=== PATIENT | male | born 1965 | race American Indian/Alaskan Native ===

== ENCOUNTER 2022-01-31 05:58 | Inpatient (IN) | payer SELFPAY ==
[2022-01-31] MEDS ORDERED: PANTOPRAZOLE 40 MG TAB PO ONE (07:03)
--- NOTE | 2022-01-31 07:04 | Emergency Department Report ---
ED General Adult HPI - General Chief complaint: Abdominal Pain Stated complaint: It is my pancreas Time Seen by Provider: 01/31/22 06:10 Source: patient, RN notes reviewed Mode of arrival: Ambulatory Limitations: No Limitations - History of Present Illness Initial comments: This patient is a 56-year-old gentleman with a history of alcohol induced pancre atitis, who presents to the ER today with a complaint of diffuse abdominal pain, nausea and vomiting, consistent with prior episodes of pancreatitis. Last alcoholic beverage was yesterday. He is not homicidal suicidal. -: Gradual Location: abdomen Severity scale (0 -10): 10 Consistency: constant Improves with: medication, rest Worsens with: movement - Related Data Allergies Allergy/AdvReac Type Severity Reaction Status Date / Time No Known Allergies Allergy Verified 01/31/22 06:16 ED Review of Systems ROS: Stated complaint: ABD PAIN,VOMITING Other details as noted in HPI Constitutional: denies: fever Eyes: denies: eye discharge ENT: denies: epistaxis Respiratory: denies: cough Cardiovascular: denies: chest pain Gastrointestinal: abdominal pain, nausea, vomiting. denies: hematochezia Genitourinary: denies: dysuria Neurological: weakness Psychiatric: denies: homicidal thoughts, suicidal thoughts ED Physical Exam - General Limitations: No Limitations General appearance: alert, anxious, in distress - Head Head exam: Present: atraumatic, normocephalic - Eye Eye exam: Present: normal appearance, EOMI. Absent: conjunctival injection, nystagmus - ENT ENT exam: Present: normal exam, normal orophraynx, mucous membranes moist, normal external ear exam - Neck Neck exam: Present: normal inspection, full ROM. Absent: tenderness, meningismus - Respiratory Respiratory exam: Present: decreased breath sounds. Absent: respiratory distre ss, wheezes, rales, rhonchi, stridor - Cardiovascular Cardiovascular Exam: Present: regular rate, normal rhythm, normal heart sounds. Absent: bradycardia, tachycardia, irregular rhythm, systolic murmur, diastolic murmur, rubs, gallop - GI/Abdominal GI/Abdominal exam: Present: soft, tenderness. Absent: distended, guarding, rebound, rigid, pulsatile mass - Rectal Rectal exam: Present: deferred - Extremities Exam Extremities exam: Present: normal inspection, full ROM, other (2+ pulses noted in the bilateral upper and lower extremities. There is no palpable cord. negative Homans sign. Muscular compartments are soft. The pelvis is stable.). Absent: pedal edema, calf tenderness - Back Exam Back exam: Present: normal inspection. Absent: tenderness, CVA tenderness (R), CVA tenderness (L), paraspinal tenderness, vertebral tenderness - Neurological Exam Neurological exam: Present: alert, other (No facial droop. Tongue midline. Extraocular movements intact bilaterally. Facial sensation intact to light touch in V1, V2, V3 distribution bilaterally. 5 and a 5 strength in 4 extremities. Sensation intact to light touch in 4 extremities.) - Psychiatric Psychiatric exam: Present: anxious - Skin Skin exam: Present: warm, dry, intact, normal color. Absent: rash ED Course Vital Signs 01/31/22 01/31/22 01/31/22 06:07 09:05 09:06 Temperature 98.9 F Pulse Rate 66 60 Respiratory 30 H 20 Rate Blood Pressure 147/89 150/90 [Left] O2 Sat by Pulse 99 100 100 Oximetry - Reevaluation(s) Reevaluation #1: 01/31/22 09:28 Differential diagnosis, include but not limited to: Pancreatitis, obstruction, colitis, gastroenteritis Assessment and plan: 56-year-old gentleman with probable alcohol induced pancreatitis. Lipase is elevated at 1300. He is found to have evidence of dehydration and elevated CK. CT scan of the abdomen pelvis ordered and pending. Admit to the medical service for dehydration, and probable alcohol induced pancreatitis. Patient is agre eable to this plan of care. Discussed with hospital physician once CT scan has been formally interpreted by radiology 01/31/22 09:31 The patient is agreeable to admission and hospitalization 01/31/22 09:37 CT scan abdomen pelvis reviewed and appreciated. Acute uncomplicated interstitial pancreatitis. Hospital physician, Dr. Shiv Cowart to admit to [facility] ED Medical Decision Making - Lab Data Result diagrams: 01/31/22 07:04 01/31/22 07:04 Vital Signs 01/31/22 01/31/22 01/31/22 06:07 09:05 09:06 Temperature 98.9 F Pulse Rate 66 60 Respiratory 30 H 20 Rate Blood Pressure 147/89 150/90 [Left] O2 Sat by Pulse 99 100 100 Oximetry Lab Results 01/31/22 01/31/22 01/31/22 Range/Units 07:04 07:04 07:04 WBC 7.7 (4.5-11.0) K/mm3 RBC 4.32 (3.65-5.03) M/mm3 Hgb 13.0 (11.8-15.2) gm/dl Hct 39.7 (35.5-45.6) % MCV 92 (84-94) fl MCH 30 (28-32) pg MCHC 33 (32-34) % RDW 13.8 (13.2-15.2) % Plt Count 247 (140-440) K/mm3 Lymph % (Auto) 12.5 L (13.4-35.0) % Geary % (Auto) 6.4 (0.0-7.3) % Eos % (Auto) 1.0 (0.0-4.3) % Baso % (Auto) 0.9 (0.0-1.8) % Lymph # (Auto) 1.0 L (1.2-5.4) K/mm3 Geary # (Auto) 0.5 (0.0-0.8) K/mm3 Eos # (Auto) 0.1 (0.0-0.4) K/mm3 Baso # (Auto) 0.1 (0.0-0.1) K/mm3 Seg Neutrophils % 79.2 H (40.0-70.0) % Seg Neutrophils # 6.1 (1.8-7.7) K/mm3 PT (12.2-14.9) Sec. INR (0.87-1.13) Sodium 136 L (137-145) mmol/L Potassium 4.2 (3.6-5.0) mmol/L Chloride 100.9 (98-107) mmol/L Carbon Dioxide 24 (22-30) mmol/L Anion Gap 15 mmol/L BUN 16 (9-20) mg/dL Creatinine 0.8 (0.8-1.3) mg/dL Estimated GFR > 60 ml/min BUN/Creatinine Ratio 20 % Glucose 148 H (75-100) mg/dL Calcium 9.4 (8.4-10.2) mg/dL Magnesium (1.7-2.3) mg/dL Total Bilirubin 0.60 (0.1-1.2) mg/dL AST 52 H (5-40) units/L ALT 32 (7-56) units/L Alkaline Phosphatase 46 (35-129) units/L Total Creatine Kinase (55-170) units/L Total Protein 7.0 (6.3-8.2) g/dL Albumin 4.8 (3.9-5) g/dL Albumin/Globulin Ratio 2.2 % Lipase 1328 H (13-60) units/L Plasma/Serum Alcohol (0-0.07) % 01/31/22 01/31/22 01/31/22 Range/Units 07:30 08:16 08:16 WBC (4.5-11.0) K/mm3 RBC (3.65-5.03) M/mm3 Hgb (11.8-15.2) gm/dl Hct (35.5-45.6) % MCV (84-94) fl MCH (28-32) pg MCHC (32-34) % RDW (13.2-15.2) % Plt Count (140-440) K/mm3 Lymph % (Auto) (13.4-35.0) % Geary % (Auto) (0.0-7.3) % Eos % (Auto) (0.0-4.3) % Baso % (Auto) (0.0-1.8) % Lymph # (Auto) (1.2-5.4) K/mm3 Geary # (Auto) (0.0-0.8) K/mm3 Eos # (Auto) (0.0-0.4) K/mm3 Baso # (Auto) (0.0-0.1) K/mm3 Seg Neutrophils % (40.0-70.0) % Seg Neutrophils # (1.8-7.7) K/mm3 PT 12.8 (12.2-14.9) Sec. INR 0.87 (0.87-1.13) Sodium (137-145) mmol/L Potassium (3.6-5.0) mmol/L Chloride (98-107) mmol/L Carbon Dioxide (22-30) mmol/L Anion Gap mmol/L BUN (9-20) mg/dL Creatinine (0.8-1.3) mg/dL Estimated GFR ml/min BUN/Creatinine Ratio % Glucose (75-100) mg/dL Calcium (8.4-10.2) mg/dL Magnesium 2.20 (1.7-2.3) mg/dL Total Bilirubin (0.1-1.2) mg/dL AST (5-40) units/L ALT (7-56) units/L Alkaline Phosphatase (35-129) units/L Total Creatine Kinase 1260 H (55-170) units/L Total Protein (6.3-8.2) g/dL Albumin (3.9-5) g/dL Albumin/Globulin Ratio % Lipase (13-60) units/L Plasma/Serum Alcohol < 0.01 (0-0.07) % - EKG Data -: EKG Interpreted by Nm EKG shows normal: sinus rhythm Rate: normal - EKG Data When compared to previous EKG there are: previous EKG unavailable 01/31/22 09:26 The EKG is interpreted at 08: 51 Sinus rhythm, bradycardia, 56 bpm. Normal axis, normal P wave axis, left ventricular hypertrophy, and motion artifact. This is an abnormal EKG. This is not a STEMI - Radiology Data Radiology results: pending, report reviewed, image reviewed CT ABDOMEN AND PELVIS WITH CONTRAST INDICATION / CLINICAL INFORMATION: acute abd pain pancreatitis omni 300 100ml. TECHNIQUE: Axial CT images were obtained through the abdomen and pelvis after 100 cc of Omnipaque 300 IV contrast. Sagittal and coronal reformatted images. All CT scans at this location are performed using CT dose reduction for ALARA by means of automated exposure control. COMPARISON: None available. FINDINGS: LOWER CHEST: Mild cardiomegaly is suspected. The visualized lung bases are clear. LIVER: There is mild hepatomegaly with steatosis. No focal liver lesion. GALLBLADDER: No significant abnormality. BILE DUCTS: No significant abnormality. PANCREAS: Mild inflammatory fat stranding and fluid surrounds the pancreas. No discrete mass, pseudocyst or perfusion defect. SPLEEN: No significant abnormality. ADRENALS: No significant abnormality. RIGHT KIDNEY and URETER: No significant abnormality. LEFT KIDNEY and URETER: No significant abnormality. STOMACH and SMALL BOWEL: No significant abnormality. COLON: No significant abnormality. APPENDIX: No significant abnormality. PERITONEUM: No free air. No fluid collection. LYMPH NODES: No significant adenopathy. AORTA and ARTERIES: No significant abnormality. IVC and VEINS: No significant abnormality. URINARY BLADDER: No significant abnormality. REPRODUCTIVE ORGANS: No significant abnormality. ADDITIONAL FINDINGS: None. SKELETAL SYSTEM: No significant abnormality. IMPRESSION: Findings consistent with acute interstitial pancreatitis. No obvious biliary stones on CT. Hepatomegaly with steatosis. Mild cardiomegaly. Signer Name: Brian White Jr, MD Signed: 01/31/2022 8:30 AM Workstation Name: [id number] Critical care attestation.: If time is entered above; I have spent that time in minutes in the direct care of this critically ill patient, excluding procedure time. ED Disposition Clinical Impression: Acute pancreatitis, Elevated CK, Alcohol abuse Disposition: ADMITTED INPATIENT Is pt being admited?: Yes Does the pt Need Aspirin: No Condition: Good
[2022-01-31] MEDS ORDERED: SODIUM CHLORIDE 0.9% 1000 ML 1,000 ML IV ONE (07:53)
[2022-01-31] MEDS ORDERED: PANTOPRAZOLE 40 MG INJ IV ONE (07:53)
[2022-01-31] MEDS ORDERED: ONDANSETRON 4 MG/2 ML INJ IV ONE (07:53)
[2022-01-31] MEDS ORDERED: HYDROmorphone 1 MG/1 ML INJ IV ONE ×2 (07:53→09:31)
[2022-01-31 08:16] LABS: Basophils # (Auto) 0.1 K/mm3 (0.0-0.1); Basophils % (Auto) 0.9 % (0.0-1.8); Eosinophils # (Auto) 0.1 K/mm3 (0.0-0.4); Hematocrit 39.7 % (35.5-45.6); Lymphocytes % (Auto) 12.5 % (13.4-35.0); Mean Corpuscular HGB Conc 33 % (32-34); Mean Corpuscular Volume 92 fl (84-94); Monocytes # (Auto) 0.5 K/mm3 (0.0-0.8); Monocytes % (Auto) 6.4 % (0.0-7.3); Platelet Count 247 K/mm3 (140-440); Red Blood Count 4.32 M/mm3 (3.65-5.03); Red Cell Distribution Width 13.8 % (13.2-15.2)
[2022-01-31 08:18] LABS: Alanine Aminotransferase 32 units/L (7-56); Albumin 4.8 g/dL (3.9-5); BUN/Creatinine Ratio 20; Blood Urea Nitrogen 16 mg/dL (9-20); Calcium 9.4 mg/dL (8.4-10.2); Hemolysis Index 18
[2022-01-31 08:42] LABS: INR 0.87 (0.87-1.13)
[2022-01-31] MEDS ORDERED: LORazepam 2 MG/ML VIAL IV PRN ×3 (09:30)
--- NOTE | 2022-01-31 09:35 | Cat Scan Report ---
CT ABDOMEN AND PELVIS WITH CONTRAST INDICATION / CLINICAL INFORMATION: acute abd pain pancreatitis omni 300 100ml. TECHNIQUE: Axial CT images were obtained through the abdomen and pelvis after 100 cc of Omnipaque 300 IV contras t. Sagittal and coronal reformatted images. All CT scans at this location are performed using CT dose reduction for ALARA by means of automated exposure control. COMPARISON: None available. FINDINGS: LOWER CHEST: Mild cardiomegaly is suspected. The visualized lung bases are clear. LIVER: There is mild hepatomegaly with steatosis. No focal liver lesion. GALLBLADDER: No significant abnormality. BILE DUCTS: No significant abnormality. PANCREAS: Mild inflammatory fat stranding and fluid surrounds the pancreas. No discrete mass, pseudoc yst or perfusion defect. SPLEEN: No significant abnormality. ADRENALS: No significant abnormality. RIGHT KIDNEY and URETER: No significant abnormality. LEFT KIDNEY and URETER: No significant abnormality. STOMACH and SMALL BOWEL: No significant abnormality. COLON: No significant abnormality. APPENDIX: No significant abnormality. PERITONEUM: No free air. No fluid collection. LYMPH NODES: No significant adenopathy. AORTA and ARTERIES: No significant abnormality. IVC and VEINS: No significant abnormality. URINARY BLADDER: No significant abnormality. REPRODUCTIVE ORGANS: No significant abnormality. ADDITIONAL FINDINGS: None. SKELETAL SYSTEM: No significant abnormality. IMPRESSION: Findings consistent with acute interstitial pancreatitis. No obvious biliary stones on CT. Hepatomegaly with steatosis. Mild cardiomegaly. Signer Name: Brian White Jr, MD Signed: 01/31/2022 9:30 AM Workstation Name: [id number]
[2022-01-31] MEDS ORDERED: THIAMINE 100 MG, FOLIC ACID 1 MG, MULTIPLE VITAMIN INJ, ADULT 10 ML in SODIUM CHLORIDE ... IV ONE (10:00)
--- NOTE | 2022-01-31 11:51 | History and Physical Report ---
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 Pain is about 10 on a scale of 1-10. Pain is all over the abdomen. Radiation to the back present. Last alcohol drink was yesterday. No fever or chills. Alcohol is exacerbating factor. No relieving factors. Review of Systems ROS: Stated complaint: ABD PAIN,VOMITING Other details as noted in HPI Constitutional: denies: fever Eyes: denies: eye discharge ENT: denies: epistaxis Respiratory: denies: cough Cardiovascular: denies: chest pain Gastrointestinal: abdominal pain, nausea, vomiting. denies: hematochezia Genitourinary: denies: dysuria Neurological: weakness Psychiatric: denies: homicidal thoughts, suicidal thoughts Past History Past Medical History: No medical history Past Surgical History: No surgical history Social history: lives with family, alcohol abuse, full code Family history: hypertension Medications and Allergies Allergies Allergy/AdvReac Type Severity Reaction Status Date / Time No Known Allergies Allergy Verified 01/31/22 06:16 Home Medications Medication Instructions Recorded Confirmed Last Taken Type No Known Home Medications [No 02/01/22 02/01/22 Unknown History Reported Home Medications] Active Meds: Active Medications Thiamine HCl 100 mg/ Folic Acid 1 mg/ Multivitamins/Minerals 10 ml/ Sodium Chloride 1,011.2 mls @ 250 mls/hr IV ONCE ONE Stop: 01/31/22 14:02 Last Admin: 01/31/22 09:51 Dose: 250 mls/hr Lorazepam (Lorazepam 2 Mg/Ml Vial) 2 mg IV Q1HR PRN PRN Reason: CIWA-Ar 8-15 Lorazepam (Lorazepam 2 Mg/Ml Vial) 4 mg IV Q1HR PRN PRN Reason: CIWA-Ar 16-25 Lorazepam (Lorazepam 2 Mg/Ml Vial) 4 mg IV Q15MIN PRN PRN Reason: CIWA-Ar >25 Exam - Constitutional Vitals: Temp Pulse Resp BP Pulse Ox 98.9 F 64 15 146/90 98 01/31/22 06:07 01/31/22 11:00 01/31/22 11:00 01/31/22 11:00 01/31/22 11:00 General appearance: Present: mild distress, well-nourished - EENT Eyes: Present: PERRL ENT: hearing intact, clear oral mucosa - Neck Neck: Present: supple, normal ROM - Respiratory Respiratory effort: normal Respiratory: bilateral: CTA - Cardiovascular Heart rate: 78 Rhythm: regular Heart Sounds: Present: S1 & S2. Absent: rub, click - Extremities Extremities: pulses symmetrical, No edema Peripheral Pulses: within normal limits - Abdominal General gastrointestinal: Present: soft, non-tender, non-distended, normal bowel sounds Localized gastrointestinal: tender: diffuse, guarding: diffuse Male genitourinary: Present: normal - Integumentary Integumentary: Present: clear, warm, dry - Musculoskeletal Musculoskeletal: gait normal, strength equal bilaterally - Psychiatric Psychiatric: appropriate mood/affect, intact judgment & insight - Neurologic Neurologic: CNII-XII intact, moves all extremities - Allied Health Allied health notes reviewed: nursing, case management Results - Labs CBC & Chem 7: 02/03/22 04:28 02/03/22 04:28 Labs: Laboratory Last Values WBC 7.7 K/mm3 (4.5-11.0) 01/31/22 07:04 RBC 4.32 M/mm3 (3.65-5.03) 01/31/22 07:04 Hgb 13.0 gm/dl (11.8-15.2) 01/31/22 07:04 Hct 39.7 % (35.5-45.6) 01/31/22 07:04 MCV 92 fl (84-94) 01/31/22 07:04 MCH 30 pg (28-32) 01/31/22 07:04 MCHC 33 % (32-34) 01/31/22 07:04 RDW 13.8 % (13.2-15.2) 01/31/22 07:04 Plt Count 247 K/mm3 (140-440) 01/31/22 07:04 Lymph % (Auto) 12.5 % (13.4-35.0) L 01/31/22 07:04 [place]monson % (Auto) 6.4 % (0.0-7.3) 01/31/22 07:04 Eos % (Auto) 1.0 % (0.0-4.3) 01/31/22 07:04 Baso % (Auto) 0.9 % (0.0-1.8) 01/31/22 07:04 Lymph # (Auto) 1.0 K/mm3 (1.2-5.4) L 01/31/22 07:04 [place]on # (Auto) 0.5 K/mm3 (0.0-0.8) 01/31/22 07:04 Eos # (Auto) 0.1 K/mm3 (0.0-0.4) 01/31/22 07:04 Baso # (Auto) 0.1 K/mm3 (0.0-0.1) 01/31/22 07:04 Seg Neutrophils % 79.2 % (40.0-70.0) H 01/31/22 07:04 Seg Neutrophils # 6.1 K/mm3 (1.8-7.7) 01/31/22 07:04 PT 12.8 Sec. (12.2-14.9) 01/31/22 08:16 INR 0.87 (0.87-1.13) 01/31/22 08:16 Sodium 136 mmol/L (137-145) L 01/31/22 07:04 Potassium 4.2 mmol/L (3.6-5.0) 01/31/22 07:04 Chloride 100.9 mmol/L (98-107) 01/31/22 07:04 Carbon Dioxide 24 mmol/L (22-30) 01/31/22 07:04 Anion Gap 15 mmol/L 01/31/22 07:04 BUN 16 mg/dL (9-20) 01/31/22 07:04 Creatinine 0.8 mg/dL (0.8-1.3) 01/31/22 07:04 Estimated GFR > 60 ml/min 01/31/22 07:04 BUN/Creatinine Ratio 20 % 01/31/22 07:04 Glucose 148 mg/dL (75-100) H 01/31/22 07:04 Calcium 9.4 mg/dL (8.4-10.2) 01/31/22 07:04 Magnesium 2.20 mg/dL (1.7-2.3) 01/31/22 07:30 Total Bilirubin 0.60 mg/dL (0.1-1.2) 01/31/22 07:04 AST 52 units/L (5-40) H 01/31/22 07:04 ALT 32 units/L (7-56) 01/31/22 07:04 Alkaline Phosphatase 46 units/L (35-129) 01/31/22 07:04 Total Creatine Kinase 1260 units/L (55-170) H 01/31/22 07:30 Total Protein 7.0 g/dL (6.3-8.2) 01/31/22 07:04 Albumin 4.8 g/dL (3.9-5) 01/31/22 07:04 Albumin/Globulin Ratio 2.2 % 01/31/22 07:04 Lipase 1328 units/L (13-60) H 01/31/22 07:04 Plasma/Serum Alcohol < 0.01 % (0-0.07) 01/31/22 08:16 Short CBC 01/31/22 Range/Units 07:04 WBC 7.7 (4.5-11.0) K/mm3 Hgb 13.0 (11.8-15.2) gm/dl Hct 39.7 (35.5-45.6) % Plt Count 247 (140-440) K/mm3 [facility] 01/31/22 07:04 Sodium 136 L Potassium 4.2 Chloride 100.9 Carbon Dioxide 24 BUN 16 Creatinine 0.8 Glucose 148 H Calcium 9.4 Cardiac Enzymes 01/31/22 Range/Units 07:30 Total Creatine Kinase 1260 H (55-170) units/L Liver Function 01/31/22 Range/Units 07:04 Total Bilirubin 0.60 (0.1-1.2) mg/dL AST 52 H (5-40) units/L ALT 32 (7-56) units/L Alkaline Phosphatase 46 (35-129) units/L Albumin 4.8 (3.9-5) g/dL Short CBC 02/03/22 Range/Units 04:28 WBC 4.5 (4.5-11.0) K/mm3 Hgb 10.8 L (11.8-15.2) gm/dl Hct 33.5 L (35.5-45.6) % Plt Count 198 (140-440) K/mm3 [facility] 02/03/22 04:28 Sodium 142 Potassium 3.5 L Chloride 108.6 H Carbon Dioxide 23 BUN 4 L Creatinine 0.7 L Glucose 98 Calcium 8.4 Liver Function 02/03/22 Range/Units 04:28 Total Bilirubin 0.40 (0.1-1.2) mg/dL AST 22 (5-40) units/L ALT 16 (7-56) units/L Alkaline Phosphatase 35 (35-129) units/L Albumin 3.6 L (3.9-5) g/dL - Imaging and Cardiology CT scan - abdomen: report reviewed Imaging and Cardiology: CT abdomen and pelvis Findings consistent with acute interstitial pancreatitis. No obvious biliary stones on CT. Assessment and Plan Advance Directives: Yes (Full code) VTE prophylaxis?: Chemical Plan of care discussed with patient/family: Yes - Patient Problems (1) Acute pancreatitis Current Visit: Yes Status: Acute Qualifiers: Pancreatitis type: alcohol induced Plan to address problem: Lipase is 1328 Keep the patient n.p.o. IV fluids for now Pain management (2) Rhabdomyolysis Current Visit: Yes Status: Acute Qualifiers: Rhabdomyolysis type: non-traumatic Qualified Code(s): M62.82 - Rhabdomyolysis Plan to address problem: Mild IV fluids for now (3) Transaminitis Current Visit: Yes Status: Acute Plan to address problem: Mild AST is 52 ALT is 32 Alcohol induced (4) EtOH dependence Current Visit: Yes Status: Chronic Qualifiers: Substance use status: uncomplicated Qualified Code(s): F10.20 - Alcohol dependence, uncomplicated Plan to address problem: Initiated on CIWA protocol Patient counseled about alcohol intake and to avoid alcohol (5) DVT prophylaxis Current Visit: Yes Status: Acute Plan to address problem: On anticoagulation GI prophylaxis (6) Advance care planning Current Visit: Yes Status: Acute Plan to address problem: Disease education conducted, care plan discussed, diagnosis discussed, prognosis discussed. Patient is full code. Patient acknowledged understanding and agreement with care plan. +30 minutes.
[2022-01-31] MEDS ORDERED: METOCLOPRAMIDE 10 MG/2 ML INJ IV PRN (12:00)
[2022-01-31] MEDS ORDERED: ACETAMINOPHEN 325 MG TAB PO PRN (12:00)
[2022-01-31] MEDS ORDERED: oxyCODONE /ACETAMINOPHEN 5-325MG TAB PO PRN (12:00)
[2022-01-31] MEDS: HYDROmorphone 1 MG/1 ML INJ IV PRN ×3 (12:13→21:48)
[2022-01-31] MEDS: ONDANSETRON 4 MG/2 ML INJ IV PRN (12:13)
[2022-01-31] MEDS: HEPARIN 5,000 UNIT/1 ML VIAL SUB-Q SCH ×2 (12:13→21:52)
[2022-01-31] MEDS: D5W/0.9% NACL 1,000 ML IV SCH (15:27)
[2022-02-01] MEDS ORDERED: ZOLPIDEM 5 MG TAB PO ONE (00:35)
[2022-02-01] MEDS: D5W/0.9% NACL 1,000 ML IV SCH ×2 (00:48→22:15)
[2022-02-01 04:16] LABS: Basophils # (Auto) 0.1 K/mm3 (0.0-0.1); Basophils % (Auto) 1.2 % (0.0-1.8); Eosinophils # (Auto) 0.1 K/mm3 (0.0-0.4); Eosinophils % (Auto) 1.1 % (0.0-4.3); Hematocrit 38.7 % (35.5-45.6); Hemoglobin 12.7 gm/dl (11.8-15.2); Lymphocytes % (Auto) 13.8 % (13.4-35.0); Mean Corpuscular HGB Conc 33 % (32-34); Mean Corpuscular Volume 92 fl (84-94); Monocytes # (Auto) 0.6 K/mm3 (0.0-0.8); Monocytes % (Auto) 8.5 % (0.0-7.3); Platelet Count 209 K/mm3 (140-440); Red Blood Count 4.22 M/mm3 (3.65-5.03); Red Cell Distribution Width 13.8 % (13.2-15.2)
[2022-02-01] MEDS: HYDROmorphone 1 MG/1 ML INJ IV PRN ×5 (04:36→19:51)
[2022-02-01 04:39] LABS: Alanine Aminotransferase 23 units/L (7-56); Albumin 4.2 g/dL (3.9-5); Blood Urea Nitrogen 8 mg/dL (9-20); Calcium 8.9 mg/dL (8.4-10.2); Hemolysis Index 8
[2022-02-01 04:42] LABS: BUN/Creatinine Ratio 11
[2022-02-01] MEDS: ONDANSETRON 4 MG/2 ML INJ IV PRN (08:06)
[2022-02-01] MEDS: HEPARIN 5,000 UNIT/1 ML VIAL SUB-Q SCH ×2 (10:00→22:16)
[2022-02-01] MEDS: NICOTINE 14 MG/24 HR PATCH TD SCH (16:00)
[2022-02-01] MEDS: ZOLPIDEM 5 MG TAB PO PRN (22:16)
--- NOTE | 2022-02-02 06:54 | Progress Note ---
Assessment and Plan - Patient Problems (1) Acute pancreatitis Current Visit: Yes Status: Acute Qualifiers: Pancreatitis type: alcohol induced Plan to address problem: Lipase is 706. Improved from 1328 Amylase is 492 Keep the patient n.p.o. IV fluids for now Pain management (2) Rhabdomyolysis Current Visit: Yes Status: Acute Qualifiers: Rhabdomyolysis type: non-traumatic Qualified Code(s): M62.82 - Rhabdomyolysis Plan to address problem: Mild IV fluids for now (3) EtOH dependence Current Visit: Yes Status: Acute Qualifiers: Substance use status: uncomplicated Qualified Code(s): F10.20 - Alcohol dependence, uncomplicated Plan to address problem: Patient counseled about alcohol and avoidance of alcohol. Also educated about alcohol effects on liver and pancreas (4) Advance care planning Current Visit: Yes Status: Acute Plan to address problem: Disease education conducted, care plan discussed, diagnosis discussed, prognosis discussed. Patient is full code. Patient acknowledged understanding and agreement with care plan. +30 minutes. 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 Pain is about 10 on a scale of 1-10. Pain is all over the abdomen. Radiation to the back present. Last alcohol drink was yesterday. No fever or chills. Alcohol is exacerbating factor. No relieving factors. February 01, 2022 Patient is n.p.o. Abdominal pain slightly better Lipase is coming down to 706 from 1328 Amylase is 492 Objective - Constitutional Vitals: Vital Signs - 12hr 02/01/22 02/01/22 02/02/22 19:55 21:54 04:19 Temperature 97.8 F 98.3 F Pulse Rate 53 L 66 Respiratory 18 18 Rate Blood Pressure 137/68 147/84 O2 Sat by Pulse 99 98 98 Oximetry General appearance: Present: no acute distress, well-nourished - EENT Eyes: PERRL, EOM intact ENT: hearing intact, clear oral mucosa Ears: bilateral: normal - Neck Neck: supple, normal ROM - Respiratory Respiratory effort: normal Respiratory: bilateral: CTA - Breasts Breasts: normal - Cardiovascular Heart rate: 78 Rhythm: regular Heart Sounds: Present: S1 & S2. Absent: gallop, rub Extremities: pulses intact, No edema, normal color, Full ROM - Gastrointestinal General gastrointestinal: Present: soft, non-tender, non-distended, normal bowel sounds - Genitourinary Male genitourinary: normal - Integumentary Integumentary: clear, warm, dry - Musculoskeletal Musculoskeletal: 1, strength equal bilaterally - Neurologic Neurologic: moves all extremities - Psychiatric Psychiatric: memory intact, appropriate mood/affect, intact judgment & insight - Allied health notes Allied health notes reviewed: nursing, case management - Labs CBC & Chem 7: 02/03/22 04:28 02/03/22 04:28
[2022-02-02] MEDS: HYDROmorphone 1 MG/1 ML INJ IV PRN ×3 (07:30→18:08)
[2022-02-02] MEDS: D5W/0.9% NACL 1,000 ML IV SCH ×2 (07:31→15:45)
[2022-02-02] MEDS: NICOTINE 14 MG/24 HR PATCH TD SCH (09:26)
[2022-02-02] MEDS: HEPARIN 5,000 UNIT/1 ML VIAL SUB-Q SCH ×2 (09:26→21:30)
[2022-02-02] MEDS: ZOLPIDEM 5 MG TAB PO PRN (21:30)
[2022-02-03] MEDS: D5W/0.9% NACL 1,000 ML IV SCH (01:59)
[2022-02-03] MEDS: HYDROmorphone 1 MG/1 ML INJ IV PRN ×2 (02:48→07:59)
[2022-02-03 05:20] LABS: Basophils % (Auto) 1.1 % (0.0-1.8); Eosinophils # (Auto) 0.2 K/mm3 (0.0-0.4); Eosinophils % (Auto) 4.2 % (0.0-4.3); Hematocrit 33.5 % (35.5-45.6); Hemoglobin 10.8 gm/dl (11.8-15.2); Lymphocytes # (Auto) 1.1 K/mm3 (1.2-5.4); Lymphocytes % (Auto) 24.7 % (13.4-35.0); Mean Corpuscular HGB Conc 32 % (32-34); Mean Corpuscular Volume 93 fl (84-94); Monocytes # (Auto) 0.5 K/mm3 (0.0-0.8); Monocytes % (Auto) 10.9 % (0.0-7.3); Platelet Count 198 K/mm3 (140-440); Red Blood Count 3.62 M/mm3 (3.65-5.03); Red Cell Distribution Width 13.3 % (13.2-15.2)
[2022-02-03 05:40] LABS: Alanine Aminotransferase 16 units/L (7-56); Albumin 3.6 g/dL (3.9-5); BUN/Creatinine Ratio 6; Blood Urea Nitrogen 4 mg/dL (9-20); Calcium 8.4 mg/dL (8.4-10.2); Hemolysis Index 7
--- NOTE | 2022-02-03 06:15 | Progress Note ---
Assessment and Plan - Patient Problems (1) Acute pancreatitis Current Visit: Yes Status: Acute Qualifiers: Pancreatitis type: alcohol induced Plan to address problem: Lipase is 62. Improved from 1328. Amylase is 101. Improved from 492. Clear liquids started and advance diet as tolerated IV fluids for now Pain management (2) Rhabdomyolysis Current Visit: Yes Status: Acute Qualifiers: Rhabdomyolysis type: non-traumatic Qualified Code(s): M62.82 - Rhabdomyolysis Plan to address problem: Mild Improved (3) EtOH dependence Current Visit: Yes Status: Acute Qualifiers: Substance use status: uncomplicated Qualified Code(s): F10.20 - Alcohol dependence, uncomplicated Plan to address problem: Patient counseled about alcohol and avoidance of alcohol. Also educated about alcohol effects on liver and pancreas (4) Transaminitis Current Visit: Yes Status: Acute Plan to address problem: Mild AST is 52 ALT is 32 Alcohol induced (5) DVT prophylaxis Current Visit: Yes Status: Acute Plan to address problem: On anticoagulation GI prophylaxis (6) Advance care planning Current Visit: Yes Status: Acute Plan to address problem: Disease education conducted, care plan discussed, diagnosis discussed, prognosis discussed. Patient is full code. Patient acknowledged understanding and agreement with care plan. +30 minutes. 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 Pain is about 10 on a scale of 1-10. Pain is all over the abdomen. Radiation to the back present. Last alcohol drink was yesterday. No fever or chills. Alcohol is exacerbating factor. No relieving factors. February 01, 2022 Patient is n.p.o. Abdominal pain slightly better Lipase is coming down to 706 from 1328 Amylase is 492 February 02, 2022 Lipase and amylase improved--- lipase is 62. Improved from 1328. Amylase is 101 improved from 492 Pain is better Patient started on clears and advance diet as tolerated Possible discharge tomorrow Objective - Constitutional Vitals: Vital Signs - 12hr 02/02/22 02/02/22 20:23 21:30 Temperature 98.1 F Pulse Rate 63 Respiratory 18 Rate Blood Pressure 148/85 O2 Sat by Pulse 96 99 Oximetry General appearance: Present: no acute distress, well-nourished - EENT Eyes: PERRL, EOM intact ENT: hearing intact, clear oral mucosa Ears: bilateral: normal - Neck Neck: supple, normal ROM - Respiratory Respiratory effort: normal Respiratory: bilateral: CTA - Breasts Breasts: normal - Cardiovascular Heart rate: 78 Rhythm: regular Heart Sounds: Present: S1 & S2. Absent: gallop, rub Extremities: pulses intact, No edema, normal color, Full ROM - Gastrointestinal General gastrointestinal: Present: soft, tender, non-distended, normal bowel sounds Localized gastrointestinal: tender: diffuse (Improved) - Genitourinary Male genitourinary: normal - Integumentary Integumentary: clear, warm, dry - Musculoskeletal Musculoskeletal: 1, strength equal bilaterally - Neurologic Neurologic: moves all extremities - Psychiatric Psychiatric: memory intact, appropriate mood/affect, intact judgment & insight - Labs CBC & Chem 7: 02/03/22 04:28 02/03/22 04:28 Labs: Abnormal lab results 02/02/22 02/03/22 02/03/22 Range/Units 14:00 04:28 04:28 RBC 3.62 L (3.65-5.03) M/mm3 Hgb 10.8 L (11.8-15.2) gm/dl Hct 33.5 L (35.5-45.6) % [place] % (Auto) 10.9 H (0.0-7.3) % Lymph # (Auto) 1.1 L (1.2-5.4) K/mm3 Potassium 3.5 L (3.6-5.0) mmol/L Chloride 108.6 H (98-107) mmol/L BUN 4 L (9-20) mg/dL Creatinine 0.7 L (0.8-1.3) mg/dL Total Protein 5.0 L (6.3-8.2) g/dL Albumin 3.6 L (3.9-5) g/dL Lipase 62 H (13-60) units/L
[2022-02-03] MEDS: NICOTINE 14 MG/24 HR PATCH TD SCH (09:03)
[2022-02-03] MEDS: HEPARIN 5,000 UNIT/1 ML VIAL SUB-Q SCH (09:03)
[2022-02-03 12:50] VITALS: BP 144/87
--- NOTE | 2022-02-03 13:12 | Electrocardiograph Report ---
[facility] Test Date: 2022-01-31 Test Time: 08:51:16 Pat Name: ARMIN GUADARRAMA Department: Room: A372 1 Gender: M Machine Turner: BP : 1965 Requested By: HATTIE HERNANDEZ Order Number: [id number] Reading MD: Khushboo Brandt Measurements Intervals [place] Rate: 56 P: 61 [place]: 166 QRS: 36 QRSD: 98 T: 40 QT: 497 QTc: 479 Interpretive Statements Sinus bradycardia Left ventricular hypertrophy Early repolarization ST changes No previous ECG available for comparison Electronically Signed On 02-03-2022 13:11:57 EDT by Khushboo Brandt
--- NOTE | 2022-02-03 13:55 | Discharge Summary ---
Providers - Providers Date of Admission: 01/31/22 11:52 Date of discharge: 02/03/22 Attending physician: JAISON ORANTES Primary care physician: SANJU DURHAM MD Hospitalization Condition: Good Disposition: 01 HOME / SELF CARE / HOMELESS - Discharge Diagnoses (1) Acute pancreatitis Status: Acute Qualifiers: Pancreatitis type: alcohol induced (2) Rhabdomyolysis Status: Acute Qualifiers: Rhabdomyolysis type: non-traumatic Qualified Code(s): M62.82 - Rhabdomyolysis (3) EtOH dependence Status: Acute Qualifiers: Substance use status: uncomplicated Qualified Code(s): F10.20 - Alcohol dependence, uncomplicated (4) Transaminitis Status: Acute (5) DVT prophylaxis Status: Acute (6) Advance care planning Status: Acute (7) Discharge planning issues Status: Acute Exam - Constitutional Vitals: Temp Pulse Resp BP Pulse Ox 98.3 F 66 18 144/87 99 02/03/22 11:22 02/03/22 11:22 02/03/22 11:22 02/03/22 11:22 02/03/22 11:22 Plan Follow up with: SANJU DURHAM MD [Primary Care Provider] - 7 Days
== END 2022-02-03 15:45 | disposition home or self-care (01) | DRG 439 ==
LOC: ED 05:58 → 3A 11:52
PROVIDERS: ADMIT Internal Medicine; ATTEND Internal Medicine
DX: K85.90 Acute pancreatitis without necrosis or infection, unspecified (principal); M62.82 Rhabdomyolysis; F10.20 Alcohol dependence, uncomplicated; R74.01 Elevation of levels of liver transaminase levels; Y90.9 Presence of alcohol in blood, level not specified
CPT/HCPCS: 36415; 74177; 80053; 80320; 82150; 82550; 83690; 83735; 85025; 85610; 93005; 96365; 96375; 96376; 99285; G0378; J3490; C9113; G0480; J1170; J1644; J2060; J2405; J3411; J7030; J7042; Q9967